=== PATIENT | female | born 1990 | race Caucasian/White ===

== ENCOUNTER 2018-08-09 04:23 | Emergency (ER) | payer MEDICAID ==
[~2018-08-09] VITALS: Ht 165.1 cm; Wt 182.0 kg
[~2018-08-09 04:23] MED LIST: METH4TAB3 PO; METH500T PO; WALKERFR; WHEE1EAC12 MC
--- NOTE | 2018-08-09 04:46 | NUR ---
Pt self identifed as male, manolo by name of Siddharth; biologically female. Siddharth reports not getting along well with men and asked if Counseling Aide were available because he "doesn't want to be put in lobby after discharge to have to wait for a rid until Friday mori." Pt reports not knowing anyone in [place] and having been transported without money. Siddharth states, "I'm worried right now." Mood is labile, vascillating between moderate irritablility and mild tearfulness. Discussed pt's pain status with dr Pollack; new orders received.
[2018-08-09] MEDS ORDERED: HYDROmorphone 1 mg/ml syringe IV ONE ×2 (04:55→06:35)
[2018-08-09] MEDS ORDERED: LORazepam 2 mg/ml vial IV ONE (07:05)
[2018-08-09] MEDS ORDERED: morphine 4 MG/ML inj SYRINge IV ONE (08:30)
--- NOTE | 2018-08-09 10:18 | NUR ---
SPOKE WITH CASE MANAGEMENT WORKER SHELDON REGARDING PT INALBE TO GET BACK HOME TO [place] AND PT REPORTS SHE HAS NO MONEY OR ANYONE WHOM COULD DRIVE HER. NO ALTERNATIVE MEASURES AVAILABLE AT PRESENT TIME.
--- NOTE | 2018-08-09 10:28 | NUR ---
PATIENT AMBULATED AT THIS TIME PER MD ORDER WITH WALKER, TOLERATED WELL, DENIES NAUSEA, DENIES DIZZINESS. GRATEFUL TO HAVE BREAKFAST AT THIS TIME, ALL SAFETY MEASURES IN PLACE.
--- NOTE | 2018-08-09 10:35 | NUR ---
CHARGE NURSE ROSA MADE AWARE PATIENT IN NEED OF TRANSPORTATION BACK TO [place], BANKING ATTORNEY SHELDON SPEAKING WITH JOAO.
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
--- NOTE | 2018-08-09 12:03 | NUR ---
HAVE NOT HEARD BACK FROM [facility], WILL CALL [facility] FOR POSSIBLE PT TRANSFER BACK HOME. MARC SANFORD NOTIFIED.
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
[2018-08-09 13:41] VITALS: BP 132/103
== END 2018-08-09 13:44 | disposition home or self-care (01) ==
LOC: ER 04:24
DX: G40.909 Epilepsy, unspecified, not intractable, without status epilepticus (principal); G89.29 Other chronic pain; M54.6 Pain in thoracic spine; M54.2 Cervicalgia; Z56.0 Unemployment, unspecified; Z88.6 Allergy status to analgesic agent; Z88.2 Allergy status to sulfonamides; Z88.8 Allergy status to other drugs, medicaments and biological substances
CPT/HCPCS: 70450; 72125; 72128; 72131; 96374; 96375; 96376; 99284; J1170; J2060; J2270

== ENCOUNTER 2018-09-01 10:23 | Inpatient (IN) | payer MEDICAID ==
[~2018-09-01] VITALS: Ht 162.6 cm; Wt 178.2 kg
[2018-09-01 12:20] VITALS: BP 120/66
[2018-09-01] MEDS ORDERED: QUET300T2 PO (14:10)
[2018-09-01] MEDS ORDERED: depakote PO (14:10)
[2018-09-01] MEDS ORDERED: LISI10TA4 PO (14:10)
[2018-09-01] MEDS ORDERED: NICOTINE POLACRILEX 4 MG LOZENGE BC PRN (14:20)
[2018-09-01] MEDS ORDERED: tuberculin, purif. prot. deriv. 5 units/0.1ml ID ONE (14:20)
[2018-09-01] MEDS ORDERED: DIVA-74 PO (14:30)
[2018-09-01] MEDS ORDERED: HYDR25TA4 PO (14:30)
[2018-09-01] MEDS ORDERED: TOP100T PO (14:30)
[2018-09-01] MEDS ORDERED: PRAZ2CAP2 PO (14:30)
[2018-09-01] MEDS ORDERED: PROM25TA14 PO (14:30)
[2018-09-01] MEDS ORDERED: DIAZ10TA PO (14:30)
[2018-09-01] MEDS ORDERED: OXYC5CAP19 PO (14:30)
[2018-09-01] MEDS ORDERED: GABA600T13 PO (14:30)
[2018-09-01] MEDS ORDERED: LANTUS SQ (14:38)
[2018-09-01] MEDS ORDERED: diazepam 5mg tablet PO PRN (14:50)
[2018-09-01] MEDS: oxyCODONE IR 5mg (immed. release) tablet PO PRN ×2 (14:57→20:51)
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
[2018-09-01] MEDS: gabapentin 300mg capsule PO SCH (17:26)
--- NOTE | 2018-09-01 17:40 | NUR ---
Skin check done by this RN and Vidya NOYOLA, skin is intact, no skin issues, pt showered. Pt is unhappy that his HS Seroquel was decreased, also requesting that someone be present when PA meets with him as he has trouble with "male authority figures like that."
[2018-09-01 20:00] VITALS: BP 102/54
[2018-09-01] MEDS: divalproex sodium 250mg tablet PO SCH (20:39)
[2018-09-01] MEDS: topiramate 100mg tablet PO SCH (20:39)
[2018-09-01] MEDS: insulin glargine (Lantus) pen - multi-dose SQ SCH (21:00)
[2018-09-01] MEDS ORDERED: prazosin 1mg capsule PO SCH (21:00)
[2018-09-01] MEDS ORDERED: quetiapine 100mg tablet PO SCH ×2 (21:00)
[2018-09-01] MEDS ORDERED: insulin glargine (Lantus) pen - multi-dose SQ SCH (21:00)
[2018-09-01] MEDS: diazepam 5mg tablet PO PRN (21:54)
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
[2018-09-02] MEDS: oxyCODONE IR 5mg (immed. release) tablet PO PRN ×3 (06:54→18:59)
[2018-09-02] MEDS: topiramate 100mg tablet PO SCH ×2 (07:40→20:45)
[2018-09-02 07:41] VITALS: BP 114/78
[2018-09-02] MEDS: lisinopril 10 MG tablet PO SCH (07:41)
[2018-09-02] MEDS: divalproex sodium 250mg tablet PO SCH (07:42)
[2018-09-02] MEDS: gabapentin 300mg capsule PO SCH ×4 (07:42→20:59)
[2018-09-02] MEDS: HYDROchlorothiazide 25mg tablet PO SCH (07:42)
[2018-09-02] MEDS ORDERED: budesonide 0.5mg/2ml UD nebule IH SCH (08:00)
[2018-09-02] MEDS ORDERED: albuterol 2.5 MG/3 ML nebule NEB SCH (09:00)
[2018-09-02] MEDS ORDERED: SUMAtriptan 25 MG tablet PO ONE (11:05)
[2018-09-02] MEDS ORDERED: docusate sod 100mg capsule PO ONE (12:10)
[2018-09-02] MEDS: diazepam 5mg tablet PO PRN (14:36)
[2018-09-02] MEDS: albuterol 2.5 MG/3 ML nebule NEB PRN ×2 (14:53→19:40)
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
[2018-09-02] MEDS: BUDESONIDE 0.25 MG/2 ML AMPUL.NEB IH SCH (19:40)
[2018-09-02 20:00] VITALS: BP 127/67
[2018-09-02] MEDS: prazosin 1mg capsule PO SCH (20:44)
[2018-09-02] MEDS: buPROPion 75mg tablet PO SCH (20:45)
[2018-09-02] MEDS: quetiapine 100mg tablet PO SCH (20:45)
[2018-09-02] MEDS: oxcarbazepine 150mg tablet PO SCH (20:45)
[2018-09-02] MEDS: insulin glargine (Lantus) pen - multi-dose SQ SCH (20:56)
[2018-09-02 21:21] LABS: BASOPHILS # (AUTO) 0.1 X10'3 (0-0.2); BASOPHILS % (AUTO) 0.7 % (0-1); EOSINOPHILS # (AUTO) 0.3 X10'3 (0-0.9); HEMATOCRIT 42.7 % (35.0-45.0); HEMOGLOBIN 14.4 g/dl (12.0-16.0); MEAN CORPUSCULAR HEMOGLOBIN 32.5 PG (27.0-31.0); MEAN CORPUSCULAR HGB CONC 33.7 g/dL (33.0-36.5); MEAN CORPUSCULAR VOLUME 96.7 FL (78-98); MEAN PLATELET VOLUME 7.6 FL (7.4-10.4); MONOCYTES # (AUTO) 0.6 X10'3 (0-0.9); MONOCYTES % (AUTO) 7.3 % (2-12); NEUTROPHILS # (AUTO) 4.1 X10'3 (1.8-7.7); PLATELET COUNT 319 X10'3 (140-440); RED BLOOD COUNT 4.42 X10'6 (4.20-5.60); RED CELL DISTRIBUTION WIDTH 13.5 % (11.5-14.5)
[2018-09-02 21:29] LABS: ALANINE AMINOTRANSFERASE 35 U/L (12-78); ALBUMIN 2.8 G/DL (3.4-5.0); ALBUMIN/GLOBULIN RATIO 0.8 (1.1-1.5); ALKALINE PHOSPHATASE 63 IU/L (46-116); ANION GAP 9 (8-16); ASPARTATE AMINO TRANSFERASE 9 U/L (10-37); BILIRUBIN,TOTAL 0.3 MG/DL (0.1-1.0); BLOOD UREA NITROGEN 9 MG/DL (7-18); CALCIUM 8.9 MG/DL (8.5-10.1); CHLORIDE 102 MMOL/L (99-107); CREATININE 0.75 MG/DL (0.40-0.90); GLUCOSE 175 MG/DL (70-104); POTASSIUM 3.9 MMOL/L (3.5-5.1); SODIUM 137 MMOL/L (135-145); TOTAL CARBON DIOXIDE 26.3 MMOL/L (24-32); TOTAL PROTEIN 6.3 G/DL (6.4-8.2); eGFR > 90 ML/MIN
[2018-09-02 21:42] LABS: HEMOGLOBIN A1C 6.6 % (4.5-6.2)
--- NOTE | 2018-09-03 00:18 | NUR ---
Nursing Progress Note: Legal hold: 5150 Client on voluntary/involuntary status for danger to self Report received from nurse with use of KEVIN; Renny LOPEZ Why are they here: The patient was seen in [place] ER by mental health staff after she went there for a mental health evaluation 2nd having suicidal thoughts with a plan to over dose on rx medications. Assessment What has happened this shift: The patient was up on the unit periodically and made some telephone calls. She was cooperative but needy and negative during the evening assessment. She stated that she felt emotional and irritable and "I'm going to try to keep to myself" She was clearly irritable during the evening and at times very negative. She denied significant problems with her energy level or her concentration or focus. She also stated that she felt like she was grieving and "pretty sad" She endorses suicidal thoughts and added, "I want to be with my partner who . I'm not going to commit suicide right now...I know you guys are here to help me" She stated that she felt relieved that she would not be discharging soon and "I don't have to worry about being thrown out" S/I, H/I; Reports suicidal thoughts but no intent A/VH: Denies Sleep:[] ADL's: Independent Group attendance: No PM group Were meds taken: Compliant with medications Any med S/E denied Mental Status Exam Appearance: Obese. Adequately groomed and appropriately dressed for the unit Eye contact: Intermittent Behavior: compliant with unit rules/routine Speech: Moderate rate and volume. Spontaneous Mood: Irritable, anxious depressed Affect: WNL Thought process: Logical. Thought Content: Negative, helpless, hopeless, situational problems, suicidal thinking Cognition: alert, oriented Insight:poor Judgment: poor Interventions PRN's used: pain medications Therapeutic interventions: One to one with the patient to assess severity of depressive symptoms and self harm risk. Restraints/seclusion/emergency medication:[] Justification of Continued Inpatient Treatment: The patient continues to endorse suicidal thinking.
[2018-09-03] MEDS: oxyCODONE IR 5mg (immed. release) tablet PO PRN ×3 (04:19→17:00)
[2018-09-03] MEDS: albuterol 2.5 MG/3 ML nebule NEB PRN ×3 (04:34→20:39)
[2018-09-03] MEDS ORDERED: loperamide 2mg capsule PO PRN (04:55)
[2018-09-03] MEDS ORDERED: acetaminophen 325mg tablet PO PRN ×2 (04:55→04:56)
[2018-09-03] MEDS ORDERED: mag hydrox/Alum hydrox/simeth 30ml oral suspension PO PRN (04:56)
[2018-09-03] MEDS ORDERED: quetiapine 100mg tablet PO SCH (07:00)
[2018-09-03] MEDS: QUEtiapine 25mg tablet PO SCH ×4 (07:00→17:00)
[2018-09-03] MEDS: buPROPion 75mg tablet PO SCH ×2 (07:27→19:52)
[2018-09-03] MEDS: gabapentin 300mg capsule PO SCH ×3 (07:28→20:21)
[2018-09-03] MEDS: docusate sod 100mg capsule PO SCH (07:28)
[2018-09-03] MEDS: oxcarbazepine 150mg tablet PO SCH ×2 (07:28→19:52)
[2018-09-03] MEDS: topiramate 100mg tablet PO SCH ×2 (07:29→19:52)
[2018-09-03 07:46] VITALS: BP 90/61
[2018-09-03] MEDS: HYDROchlorothiazide 25mg tablet PO SCH (08:00)
[2018-09-03] MEDS ORDERED: buproprion 150mg XL (24-hour) tablet PO SCH (08:00)
[2018-09-03] MEDS: lisinopril 10 MG tablet PO SCH (08:00)
[2018-09-03 08:05] LABS: CHOLESTEROL 176 MG/DL (0-200); HDL CHOLESTEROL 25 MG/DL (35-60); LDL CHOLESTEROL 105 MG/DL (50-100)
[2018-09-03] MEDS: BUDESONIDE 0.25 MG/2 ML AMPUL.NEB IH SCH ×2 (09:05→20:39)
[2018-09-03 09:40] LABS: TRIGLYCERIDES 355 MG/DL (20-135)
[2018-09-03] MEDS: diazepam 5mg tablet PO PRN (12:02)
[2018-09-03] MEDS ORDERED: polyvinyl alcohol ophthalmic drops 15ml bottle EACHEYE PRN (13:35)
--- NOTE | 2018-09-03 13:38 | NUR ---
DM Consult: Pt A1C <7 and not appropriate for ed at this time. Addendum: 09/03/18 at [address] Amended: Links added.
[2018-09-03] MEDS: polyvinyl alcohol ophthalmic drops 15ml bottle EACHEYE SCH ×2 (14:48→19:51)
[2018-09-03] MEDS: cetirizine 10mg tablet PO SCH (14:48)
--- NOTE | 2018-09-03 17:15 | NUR ---
Nursing Progress Note: Legal hold: 5150 Client on voluntary/involuntary status for danger to self Report received from nurse with use of KEVIN; Echo LOPEZ Why are they here: The patient was seen in [place] ER by mental health staff after she went there for a mental health evaluation 2nd having suicidal thoughts with a plan to over dose on rx medications. Pt. reports being transgender and requests to be called lenny and male pronouns be used. Assessment What has happened this shift: Pt.'s mood very irritable and labile today. Pt. reports her mother's cancer has metastasized, pt. reports she is depressed and wants to be alone. Pt. states, "I'm sorry if I lash out today, I've got a lot I'm dealing with". Pt. only attends group for a short amount of time and then goes back to her room. Pt. requests her pain medication every 6 hours due to severe back pain from spinal stenosis. Pt. had one episode of yelling after she was told she could not have the phone during group, pt. then slammed her door. Pt. started on eye drops and zyrtec for red, painful right eye. Pt.'s blood glucose was 127 in AM, 176 noon, and 145 at dinner. Pt. requested wheel chair and then requeted the walker instead. Pt. refused morning, afternoon, and evening dose of seroquil. Pt. is incontinent at times. Pt. swearing at times and saying beligerant things and then smiles and states, "I'm just FGwith you". Pt. requested no PRN breathing treatments. S/I, H/I; Reports suicidal thoughts but no intent A/VH: Denies Sleep: Pt. napped x1 today. ADL's: Independent Group attendance: No afternoon group. Were meds taken: Compliant with medications Any med S/E denied Mental Status Exam Appearance: Obese. Adequately groomed and appropriately dressed for the unit Eye contact: Intermittent Behavior: compliant with unit rules/routine Speech: Moderate rate and volume. Spontaneous Mood: Irritable, anxious depressed Affect: WNL Thought process: Logical. Thought Content: Pt. social and upbeat at times but labile and quickly becoming negative, helpless, hopeless, and has suicidal thinking Cognition: intact. Insight:poor Judgment: poor Interventions PRN's used: Oxycodone and valium. Therapeutic interventions: One to one with the patient to assess severity of depressive symptoms and self harm risk. Restraints/seclusion/emergency medication: N/A Justification of Continued Inpatient Treatment: The patient continues to endorse suicidal thinking.
[2018-09-03 19:00] VITALS: BP 108/67
[2018-09-03] MEDS: quetiapine 100mg tablet PO SCH (20:18)
[2018-09-03] MEDS: insulin glargine (Lantus) pen - multi-dose SQ SCH (20:20)
[2018-09-03] MEDS: prazosin 1mg capsule PO SCH ×2 (20:21→20:25)
[2018-09-04] MEDS: polyvinyl alcohol ophthalmic drops 15ml bottle EACHEYE SCH ×4 (02:00→19:46)
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
[2018-09-04] MEDS: oxyCODONE IR 5mg (immed. release) tablet PO PRN ×3 (04:45→16:48)
[2018-09-04] MEDS: QUEtiapine 25mg tablet PO SCH ×3 (07:00→17:00)
[2018-09-04 07:55] VITALS: BP 114/65
[2018-09-04] MEDS: docusate sod 100mg capsule PO SCH (07:58)
[2018-09-04] MEDS: gabapentin 300mg capsule PO SCH ×3 (07:58→21:08)
[2018-09-04] MEDS: buPROPion 75mg tablet PO SCH ×2 (07:58→19:39)
[2018-09-04] MEDS: oxcarbazepine 150mg tablet PO SCH ×2 (07:58→19:39)
[2018-09-04] MEDS: topiramate 100mg tablet PO SCH ×2 (07:59→19:39)
[2018-09-04] MEDS: cetirizine 10mg tablet PO SCH (07:59)
[2018-09-04] MEDS: lisinopril 5mg tablet PO SCH (07:59)
[2018-09-04] MEDS: HYDROchlorothiazide 25mg tablet PO SCH (07:59)
[2018-09-04] MEDS: BUDESONIDE 0.25 MG/2 ML AMPUL.NEB IH SCH ×2 (08:10→21:00)
[2018-09-04] MEDS: magnesium hydroxide 30ml (MOM) UD suspension PO PRN (09:37)
[2018-09-04] MEDS: proMETHazine 25mg tablet PO PRN (10:50)
[2018-09-04] MEDS: diazepam 5mg tablet PO PRN ×2 (13:01→19:39)
--- NOTE | 2018-09-04 17:22 | NUR ---
Nursing Progress Note: Legal hold: 5250 Client on voluntary/involuntary status for danger to self Report received from Carolee Jorge RN with use of SBAR Why are they here: The patient was seen in [place] ER by mental health staff after she went there for a mental health evaluation secondary to having suicidal thoughts with a plan to over dose on prescription medications. Pt. reports being transgender and requests to be called Siddharth and male pronouns be used. Assessment What has happened this shift: Pt. up at change of shift. Pt. reporting that today is going to be a difficult day because it's the anniversary of a friend's . Pt. reports that she fell this morning on her knees while in the bathroom, pt. assessed, no visible injury observed. Pt. went to group but left early stating that she was triggered by the discussion and made her upset. Pt. went back to room and slept. pt. went to day room for lunch but was upset and yelling because her tray was wrong. Pt. given PRN oxycodone for pain, Phenergan for nausea, and valium for anxiety. Pt.'s BG today were 0700 167, Noon 151 and 1700 164. Pt. is easily agitated by the other patients and leaves the day room to seek solitude in her room. S/I, H/I; Pt. reports passive SI, states, "I Just don't want to be on this earth". A/VH: None reported or observed Sleep: Pt. napped x2 on day shift. ADL's: Independent Group attendance: pt. attended part of morning group. Did not attend afternoon group. Were meds taken: all but seroquel. Any med S/E: None reported or observed Mental Status Exam Appearance: Obese. Adequately groomed and appropriately dressed for the unit Eye contact: Intermittent. Behavior: labile, joking at times, demanding and yelling at other times. Speech: Moderate rate and volume. Spontaneous Mood: Irritable, anxious, depressed, irritable, demanding. Affect: Congruent Thought process: Logical. Thought Content: Pt. social and upbeat at times but labile and quickly becoming negative, helpless, hopeless. Cognition: Alert and oriented Insight: Poor Judgment: Poor Interventions PRN's used: Oxycodone, Valium, Phenergan. Therapeutic interventions: One to one with the patient to assess severity of depressive symptoms and self harm risk. Maintained a safe and therapeutic environment. Administered medications as ordered. Restraints/seclusion/emergency medication: N/A Justification of Continued Inpatient Treatment: Patient is emotionally fragile and continues to endorse suicidal thinking. Continued therapeutic support and medication management needed to provide stabilization.
[2018-09-04 19:00] VITALS: BP 131/83
[2018-09-04] MEDS: prazosin 1mg capsule PO SCH (21:07)
[2018-09-04] MEDS: insulin glargine (Lantus) pen - multi-dose SQ SCH (21:07)
[2018-09-04] MEDS: quetiapine 100mg tablet PO SCH (21:08)
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
[2018-09-05] MEDS: polyvinyl alcohol ophthalmic drops 15ml bottle EACHEYE SCH ×4 (02:00→20:00)
[2018-09-05] MEDS: oxyCODONE IR 5mg (immed. release) tablet PO PRN ×3 (06:07→19:04)
[2018-09-05] MEDS: QUEtiapine 25mg tablet PO SCH ×5 (07:00→21:05)
[2018-09-05 08:00] VITALS: BP 117/68
[2018-09-05] MEDS: BUDESONIDE 0.25 MG/2 ML AMPUL.NEB IH SCH ×2 (08:17→21:00)
[2018-09-05] MEDS: HYDROchlorothiazide 25mg tablet PO SCH (08:29)
[2018-09-05] MEDS: oxcarbazepine 150mg tablet PO SCH ×2 (08:29→20:08)
[2018-09-05] MEDS: cetirizine 10mg tablet PO SCH (08:29)
[2018-09-05] MEDS: topiramate 100mg tablet PO SCH ×2 (08:29→20:08)
[2018-09-05] MEDS: gabapentin 300mg capsule PO SCH ×3 (08:29→21:02)
[2018-09-05] MEDS: buPROPion 75mg tablet PO SCH ×2 (08:29→20:08)
[2018-09-05] MEDS: lisinopril 5mg tablet PO SCH (08:29)
[2018-09-05] MEDS: docusate sod 100mg capsule PO SCH (08:29)
[2018-09-05] MEDS: hydrOXYzine 25 MG tablet PO PRN (12:40)
--- NOTE | 2018-09-05 14:10 | NUR ---
Initial: Pt admit to [facility] with depression with SI. Pt on a CHO controlled diet with documented PO intake 100% meeting nutrient needs. LBM 09/04. No edema or wounds. No nutrition diagnosis at this time. Will continue to follow. Recommendations: 1) Continue with CHO controlled diet 2) Weekly wt Addendum: 09/05/18 at [address] Amended: Links added.
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
[2018-09-05 17:55] VITALS: BP 138/80
[2018-09-05 19:00] VITALS: BP 97/54
[2018-09-05] MEDS: prazosin 1mg capsule PO SCH (20:12)
[2018-09-05] MEDS: insulin glargine (Lantus) pen - multi-dose SQ SCH (21:01)
[2018-09-05] MEDS: quetiapine 100mg tablet PO SCH (21:24)
--- NOTE | 2018-09-06 00:43 | NUR ---
Nursing Progress Note: Legal hold: 5250 Client on voluntary/involuntary status for danger to self Report received from Arlin LOPEZ with use of SBAR Why are they here: The patient was seen in [place] ER by mental health staff after she went there for a mental health evaluation secondary to having suicidal thoughts with a plan to over dose on prescription medications. Pt. reports being transgender and requests to be called Siddharth and male pronouns be used. Assessment What has happened this shift: Received patient sleeping in her room. Pt was quite groggy it took this engineering technical writer several times shaking patient to wake her up. Pt stated she had a bad day because some of the staff still refer to him as Marilou and not Siddharth. "Marilou is my name." She also reported that another patient continues to make sexual innuendos to him like "how big is your penis going to be," "hey sexy can I be your snuggle bunny." Pt feels like she needs to isolate to her room to avoid this other patient. This write observed pt out of room later having a snack and walked the ware. Pt denies SI, states she is depressed not suicidal. Rates depression 9/10 and anxiety 9/10. Pt was set up on BiPAP @ 30%. Minipress was held due to SBP being below parameters. Blood glucose was 165. S/I, H/I; Pt denies, none observed A/VH: None reported or observed Sleep: See sleep assessment notation ADL's: Independent Group attendance: caustic cresylate shift superintendent, no group Were meds taken: Except for 0200 eye drops and 2100 breathing treatment Any med S/E: None reported or observed Mental Status Exam Appearance: Clean and appropriate Eye contact: Direct Behavior: Cooperative, depressed Speech: Clear, moderate rate and rhythm Mood: Depressed, labile Affect: Labile Thought process: Logical. Thought Content: Pt feels she gets treated differently because she is transgender Cognition: Alert and oriented Insight: Poor Judgment: Poor Interventions PRN's used: Oxycodone Therapeutic interventions: 1:1 therapeutic assessment, active listening, medication education, administration, and monitoring for effects, maintained Q15 min safety checks, therapeutic milieu and group therapy. Restraints/seclusion/emergency medication: N/A Justification of Continued Inpatient Treatment: Patient is emotionally fragile and continues to endorse suicidal thinking. Continued therapeutic support and medication management needed to provide stabilization.
[2018-09-06] MEDS: polyvinyl alcohol ophthalmic drops 15ml bottle EACHEYE SCH ×4 (02:00→19:17)
[2018-09-06] MEDS: oxyCODONE IR 5mg (immed. release) tablet PO PRN ×4 (06:03→19:14)
[2018-09-06] MEDS: docusate sod 100mg capsule PO SCH (07:22)
[2018-09-06] MEDS: hydrOXYzine 25 MG tablet PO PRN (07:22)
[2018-09-06] MEDS: gabapentin 300mg capsule PO SCH ×3 (07:23→20:33)
[2018-09-06] MEDS: oxcarbazepine 150mg tablet PO SCH ×2 (07:24→19:12)
[2018-09-06] MEDS: diazepam 5mg tablet PO PRN ×2 (07:24→20:34)
[2018-09-06] MEDS: buPROPion 75mg tablet PO SCH ×2 (07:24→19:12)
[2018-09-06] MEDS: lisinopril 5mg tablet PO SCH (07:25)
[2018-09-06] MEDS: cetirizine 10mg tablet PO SCH (07:25)
[2018-09-06] MEDS: topiramate 100mg tablet PO SCH ×2 (07:25→19:12)
[2018-09-06] MEDS: SUMAtriptan 25 MG tablet PO PRN (07:26)
[2018-09-06] MEDS: HYDROchlorothiazide 25mg tablet PO SCH (07:26)
[2018-09-06 08:00] VITALS: BP 114/84
[2018-09-06] MEDS: BUDESONIDE 0.25 MG/2 ML AMPUL.NEB IH SCH ×2 (09:00→21:29)
--- NOTE | 2018-09-06 10:02 | NUR ---
Pt had anxiety due to another ptws comments, pt had effective coping skills and is now reading a book Addendum: 09/06/18 at 1006 by Nichole Hammonds RN Amended: Links added.
[2018-09-06] MEDS: proMETHazine 25mg tablet PO PRN ×2 (12:35→19:12)
[2018-09-06] MEDS: QUEtiapine 25mg tablet PO SCH ×2 (12:35→17:00)
--- NOTE | 2018-09-06 15:48 | NUR ---
Nursing Progress Note: Legal hold: 5250 Client on voluntary/involuntary status for danger to self Report received from nurse with use of KEVIN SHEPHERD Why are they here: The patient was seen in [place] ER by mental health staff after she went there for a mental health evaluation 2nd having suicidal thoughts with a plan to over dose on rx medications. Assessment What has happened this shift: The patient was awake in her bed at change of shift. During 1:1 evaluation and engaging with pt she expressed that she was upset from the day before. Myself and Dione RN were able to redirect pt and explain today is a new day and we are here to help her. Pt was easily redirectable during that moment and was satisfied with the plan of care for the day. Pt had a concern about another pt due to some inappropriate comments the other pt made to her. She expressed feelings of not feeling safe and was somewhat sad as well. Pt stated "I wanted to punch her when she did that but I didn't". Pt had demonstrated self control in that moment and I made sure and told her how impressed I was with her self control. We established a verbal agreement that we would make sure and keep her and the other pt away from each other and have her sit on the other side of the room. All staff aware as well, CN aware. Pt was grateful and stated "I feel safe" during our conversation of what actions were made to ensure pt felt safe. Pt was given her pain medications per md orders as well as antiemetics and pt was grateful as she was in pain. During that time pt expressed that she is feeling down, passively expressed SI. Pt also states that she would jump in traffic. Pt participated in group time and also pleasantly engaging with other pts during a birthday celebration. Pt stated, "this is really cool that you guys are doing this for her." At one point in the day she was referred to as Marilou and instantly had a change in her facial expression of feeling sad. We immediately apologized and she was ok. S/I, H/I; Reports suicidal thoughts but no intent A/VH: Denies Sleep:Napped ADL's: Independent Group attendance: No PM group Were meds taken: Compliant with medications Any med S/E denied Mental Status Exam Appearance: Obese. Adequately groomed and appropriately dressed for the unit Eye contact: Intermittent Behavior: compliant with unit rules/routine Speech: Moderate rate and volume. Spontaneous Mood: Irritable, anxious depressed Affect: WNL Thought process: Logical. Thought Content: Negative, helpless, hopeless, situational problems, suicidal thinking Cognition: alert, oriented Insight:poor Judgment: poor Interventions PRN's used: pain medications, antiemetics Therapeutic interventions: One to one time with pt and gave her positive feedback on her self control she expressed today. Spoke with her also about her depressive state and provided pt with paper so she can journal her feelings which was very effective for her and pt also stated she wanted to read her book. Restraints/seclusion/emergency medication:none Justification of Continued Inpatient Treatment: The patient continues to endorse suicidal thinking.
[2018-09-06 19:57] VITALS: BP 137/92
[2018-09-06] MEDS: prazosin 1mg capsule PO SCH (20:33)
[2018-09-06] MEDS: quetiapine 100mg tablet PO SCH (20:33)
[2018-09-06] MEDS: insulin glargine (Lantus) pen - multi-dose SQ SCH (20:39)
[2018-09-06] MEDS: albuterol 2.5 MG/3 ML nebule NEB PRN (21:29)
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
[2018-09-07] MEDS: polyvinyl alcohol ophthalmic drops 15ml bottle EACHEYE SCH ×4 (02:00→20:52)
[2018-09-07] MEDS: proMETHazine 25mg tablet PO PRN (05:49)
[2018-09-07] MEDS: oxyCODONE IR 5mg (immed. release) tablet PO PRN ×3 (05:49→17:58)
[2018-09-07] MEDS: QUEtiapine 25mg tablet PO SCH ×3 (07:00→16:35)
[2018-09-07] MEDS: diazepam 5mg tablet PO PRN ×2 (07:22→20:42)
[2018-09-07] MEDS: topiramate 100mg tablet PO SCH ×2 (07:44→20:41)
[2018-09-07] MEDS: buPROPion 75mg tablet PO SCH (07:45)
[2018-09-07] MEDS: oxcarbazepine 150mg tablet PO SCH ×2 (07:45→20:40)
[2018-09-07] MEDS: lisinopril 5mg tablet PO SCH (07:45)
[2018-09-07] MEDS: gabapentin 300mg capsule PO SCH ×3 (07:45→20:41)
[2018-09-07] MEDS: cetirizine 10mg tablet PO SCH (07:45)
[2018-09-07] MEDS: HYDROchlorothiazide 25mg tablet PO SCH (07:45)
[2018-09-07] MEDS: docusate sod 100mg capsule PO SCH ×2 (07:46→20:41)
[2018-09-07 08:00] VITALS: BP 125/77
[2018-09-07] MEDS: magnesium hydroxide 30ml (MOM) UD suspension PO PRN (12:06)
[2018-09-07] MEDS ORDERED: dextrose ORAL solution 15 GM/59 ML bottle PO PRN ×2 (13:50)
[2018-09-07] MEDS: hydrOXYzine 25 MG tablet PO PRN (15:04)
[2018-09-07] MEDS ORDERED: methyl salicylate/menthol cream 85gm TP PRN (15:35)
[2018-09-07] MEDS ORDERED: sennosides 8.6mg tablet PO ONE (15:55)
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
[2018-09-07] MEDS: sennosides 8.6mg tablet PO SCH (20:40)
[2018-09-07] MEDS: prazosin 1mg capsule PO SCH (20:41)
[2018-09-07] MEDS: quetiapine 100mg tablet PO SCH (20:42)
[2018-09-07 20:43] VITALS: BP 132/90
[2018-09-07] MEDS: insulin glargine (Lantus) pen - multi-dose SQ SCH (20:51)
[2018-09-07] MEDS: BUDESONIDE 0.25 MG/2 ML AMPUL.NEB IH SCH ×2 (21:00→21:12)
--- NOTE | 2018-09-07 21:21 | NUR ---
Nursing Progress Note: Legal hold: 5250 Client on involuntary status for danger to self Report received from Arlin LOPEZ with use of SBAR Why are they here: The patient was seen in [place] ER by mental health staff after he went there for a mental health evaluation 2nd having suicidal thoughts with a plan to over dose on rx medications. Assessment What has happened this shift: Pt was in the hallway at change of shift yelling "fuck this!" and angry, I opened the door talk and she walked away from me. Pt calmed herself in her room for several minutes and returned to the nursing station w/new clothes and requested a shower. Shower was made ready for patient. Pt explains "I was really suicidal today, but my mood is lifted after getting new clothes." Pt c/o her toenail, explained we can keep a bandage over it as we don't have anyone available to cut the toenail tonight. Pt c/o back pain at 5/10, she has been given prn at the end of day shift. Pt c/o feeling panicked but would like to wait until after her shower for valium. Pt was given prn valium. Pt requested new socks and was provided w/them. Pt reports attending groups today and discussed grief, she reports having a "bad flashback" regarding her "best friend who committed suicide by heroin overdose." Pt is requesting reading glasses, a new mask from respiratory, Prn frederick reed for her feet, and would like her seroquel to be given just before respiratory arrives. Pt c/o constipation and was given colace and senokot. Pt explained that she was upset that she was upset at the beginning of shift because of things other patients were saying. Explained to patient that some of the patients here dont have much control over everything they say and assured pt we would attempt to intervene if we hear inappropriate things being said. S/I, H/I: Passive s/i, is able to contract for safety while she's here. A/VH: Denies Sleep: reports sleeping well w/cpap ADL's: Independent Group attendance: no evening groups Were meds taken: pt is med compliant Any med S/E: None reported or noted Mental Status Exam Appearance: adequately groomed and dressed Eye contact: good Behavior: angry agitated at start of shift later explained "it makes me so mad when other patients say things they shouldnt be saying" pts mood improved after receiving new clothes and she became pleasant, patient, and cooperative. Speech: Normal rate and rhythm Mood: depressed states "I just want to be " Affect: Labile Thought process: Linear Thought Content:talking about new clothes, feet, meds, cpap. Cognition: A&Ox4 Insight: Poor Judgment: Poor Interventions PRN's used: Oxy-IR, Valium, Atarax, MOM Therapeutic interventions: 1:1 therapeutic assessment, active listening, medication education, administration, and monitoring for effects, maintained Q15 min safety checks, therapeutic milieu and group therapy. Restraints/seclusion/emergency medication: No Justification of Continued Inpatient Treatment: Pt endorses passive SI. Pt needs continued therapeutic support and medication management to provide stabilization and prevent decompensation.
--- NOTE | 2018-09-08 00:04 | NUR ---
glucose monitoring was changed from HS to BID, HS intervention was completed.
[2018-09-08] MEDS: polyvinyl alcohol ophthalmic drops 15ml bottle EACHEYE SCH ×4 (02:00→20:00)
[2018-09-08] MEDS: oxyCODONE IR 5mg (immed. release) tablet PO PRN ×3 (07:00→19:39)
[2018-09-08] MEDS: QUEtiapine 25mg tablet PO SCH ×3 (07:00→17:00)
[2018-09-08] MEDS: metFORMIN 500mg tablet PO SCH (07:40)
[2018-09-08] MEDS: sennosides 8.6mg tablet PO SCH ×2 (07:40→19:39)
[2018-09-08] MEDS: duloxetine 30mg CAPSULE.DR PO SCH (07:40)
[2018-09-08] MEDS: oxcarbazepine 150mg tablet PO SCH ×2 (07:41→19:39)
[2018-09-08] MEDS: gabapentin 300mg capsule PO SCH ×3 (07:41→20:53)
[2018-09-08] MEDS: docusate sod 100mg capsule PO SCH ×2 (07:42→19:39)
[2018-09-08] MEDS: topiramate 100mg tablet PO SCH ×2 (07:42→19:39)
[2018-09-08] MEDS: cetirizine 10mg tablet PO SCH (07:42)
[2018-09-08] MEDS: diazepam 5mg tablet PO PRN ×2 (07:43→15:44)
[2018-09-08] MEDS: buPROPion 75mg tablet PO SCH (07:43)
[2018-09-08] MEDS: HYDROchlorothiazide 25mg tablet PO SCH (07:47)
[2018-09-08] MEDS: lisinopril 5mg tablet PO SCH (07:47)
[2018-09-08 08:22] VITALS: BP 100/54
--- NOTE | 2018-09-08 08:34 | NUR ---
1:1 DISCHARGE PLANNING RAJESH made TC to [facility] at [phone], and spoke w/ Clinician of the Day, Eduardo. SW provided update on pt legal status and requested post hospital discharge appointments. Pt does not have an assigned Clinician at this time. SW informed pt sees "Person of the Day" for follow up appointments. Bethany is the provider who prescribes medications. RAJESH will follow up with JENNIFER Shah to learn disposition after today's assessment and provide update to [facility]. ALEJANDRINA Farrell
[2018-09-08] MEDS: albuterol 2.5 MG/3 ML nebule NEB PRN (10:40)
[2018-09-08] MEDS: BUDESONIDE 0.25 MG/2 ML AMPUL.NEB IH SCH ×2 (10:41→21:30)
[2018-09-08] MEDS: proMETHazine 25mg tablet PO PRN ×2 (13:27→19:39)
--- NOTE | 2018-09-08 17:42 | NUR ---
Nursing Progress Note: Legal hold: 5250 Client on involuntary status for danger to self Report received from Arlin LOPEZ with use of SBAR Why are they here: The patient was seen in [place] ER by mental health staff after he went there for a mental health evaluation 2nd having suicidal thoughts with a plan to over dose on rx medications. Assessment What has happened this shift: Pt. awake at beginning of shift. Pt. ate breakfast and took medications. BG 146 Pt. refused her blood pressure medication, pt. states, "It will make me feel sick". Pt. focused on getting her pain medications, stating, "remind me when I'm due for my next one". RN informed pt. that he can only give medication when pt. requests it as it is an as needed medication. Pt. verbalized understanding. Pt. reports her back pain is 9/10. Pt. attended part of morning group but reported that it brought up a lot of difficult emotions so she did not want to stay. Pt. is very anxious about going home tomorrow. Pt. became nauseaus during lunch and states, "I think it's because I nervous about what Artur is going to say to me". Pt. given PRN Phenergen for nausea. RN talked with pt. and pt. was able to verbalize the positives if she is discharged. Pt. states, "I am going to go see my 5 y.o. daughter in [place], and I will visit my terminally ill mother at the same time and my girlfriends burial site. Pt. given Valium @ 0730 and 15:30 for anxiety with good effect. S/I, H/I: Passive s/i, is able to contract for safety while she's here. A/VH: Denies Sleep: reports sleeping well w/cpap ADL's: Independent Group attendance: pt. attended part of morning group. Were meds taken: pt is med compliant Any med S/E: None reported or noted Mental Status Exam Appearance: adequately groomed and dressed Eye contact: good Behavior: Pt. is isolative and deprsesed at times and out-going and gregarious at other times. Speech: Normal rate and rhythm Mood: Pt.'s mood fluctuates during the day from isolative and depressed to loud and intrussive. Affect: Labile Thought process: Linear Thought Content: Pt. is focused on her PRN pain medications and discharge. Cognition: A&Ox4 Insight: Poor Judgment: Poor Interventions PRN's used: Oxy-IR, Valium, Phenergen Therapeutic interventions: 1:1 therapeutic assessment, active listening, medication education, administration, and monitoring for effects, maintained Q15 min safety checks, therapeutic milieu and group therapy. Restraints/seclusion/emergency medication: No Justification of Continued Inpatient Treatment: Pt endorses passive SI. Pt needs continued therapeutic support and medication management to provide stabilization and prevent decompensation.
[2018-09-08 20:00] VITALS: BP 133/93
[2018-09-08] MEDS: insulin glargine (Lantus) pen - multi-dose SQ SCH (20:51)
[2018-09-08] MEDS: quetiapine 100mg tablet PO SCH (20:52)
[2018-09-08] MEDS: SUMAtriptan 25 MG tablet PO PRN (20:52)
[2018-09-08] MEDS: prazosin 1mg capsule PO SCH (20:53)
--- NOTE | 2018-09-08 22:13 | NUR ---
Nursing Progress Note: Legal hold: 5250 Client on involuntary status for danger to self Report received from Vernon LOPEZ with use of SBAR Why are they here: The patient was seen in [facility] by mental health staff after he went there for a mental health evaluation 2nd having suicidal thoughts with a plan to over dose on rx medications. Assessment What has happened this shift: Pt was in ware at change of shift. Pt is requesting pain medications. She states she is concerned about discharge tomorrow and explains she thinks she will have trouble getting in the house and her roommate will leave and go to the casino and wont give her a mcdonough. Pt states "I live in a weird situation, my roommates dont know Im trans, they just think I'm reed. They are a couple, but she likes me and he likes me but I dont like him and shes going to be gone for two weeks and leave me there with him and I'm probably going to just have to give him money to leave me alone and go to the casino." Pt states she isnt currently thinking of suicide, but mostly how she will get in the house. Pt is able to contract for safety. Pt c/o pain, a headache. She refuses eye drops, frederick reed for her feet, and requests that RT not bother her tonight or come to her room, because she doesnt want to use bipap tonight. Encouraged use of bipap while she is sleeping and pt states "I have a headache, I dont want to be bothered by any noises." Pt reports sleeping well the night before w/bipap. Pts appetite is good. S/I, H/I: Passive s/i, is able to contract for safety while she's here. A/VH: Denies Sleep: pt refused bipap tonight ADL's: Independent Group attendance: No evening groups Were meds taken: Pt did not use eye drops, Any med S/E: None reported or noted Mental Status Exam Appearance: adequately groomed and dressed Eye contact: good Behavior: Pt spent time talking on the phone to roomate, and watching basketball in rec room. Speech: Normal rate and rhythm Mood: Labile depressed, anxious, Affect: Labile Thought process: Linear Thought Content: Pt. is focused on her PRN pain medications and discharge. Cognition: A&Ox4 Insight: Poor Judgment: Poor Interventions PRN's used: Oxy-IR, Valium, Phenergen,Imitrex Therapeutic interventions: 1:1 therapeutic assessment, active listening, medication education, administration, and monitoring for effects, maintained Q15 min safety checks, therapeutic milieu Restraints/seclusion/emergency medication: No Justification of Continued Inpatient Treatment: Pt endorses passive SI. Pt needs continued therapeutic support and medication management to provide stabilization and prevent decompensation.
[2018-09-09] MEDS: polyvinyl alcohol ophthalmic drops 15ml bottle EACHEYE SCH ×2 (02:00→08:40)
[2018-09-09] MEDS: oxyCODONE IR 5mg (immed. release) tablet PO PRN (06:57)
[2018-09-09] MEDS: QUEtiapine 25mg tablet PO SCH ×2 (07:00→12:19)
[2018-09-09] MEDS: gabapentin 300mg capsule PO SCH ×2 (07:37→12:19)
[2018-09-09] MEDS: duloxetine 30mg CAPSULE.DR PO SCH (07:38)
[2018-09-09] MEDS: sennosides 8.6mg tablet PO SCH (07:38)
[2018-09-09] MEDS: metFORMIN 500mg tablet PO SCH (07:39)
[2018-09-09] MEDS: docusate sod 100mg capsule PO SCH (07:39)
[2018-09-09] MEDS: topiramate 100mg tablet PO SCH (07:39)
[2018-09-09] MEDS: cetirizine 10mg tablet PO SCH (07:40)
[2018-09-09] MEDS: HYDROchlorothiazide 25mg tablet PO SCH (07:40)
[2018-09-09] MEDS: lisinopril 5mg tablet PO SCH (07:40)
[2018-09-09] MEDS: oxcarbazepine 150mg tablet PO SCH (07:40)
[2018-09-09] MEDS: buPROPion 75mg tablet PO SCH (07:41)
[2018-09-09 08:00] VITALS: BP 140/88
[2018-09-09] MEDS: BUDESONIDE 0.25 MG/2 ML AMPUL.NEB IH SCH (08:15)
[2018-09-09] MEDS: diazepam 5mg tablet PO PRN (11:18)
[2018-09-09] MEDS ORDERED: CETI-102 PO (12:20)
[2018-09-09] MEDS ORDERED: SENN-173 PO (12:20)
[2018-09-09] MEDS ORDERED: BUPR-83 PO (12:20)
[2018-09-09] MEDS ORDERED: METF-950 PO (12:20)
[2018-09-09] MEDS ORDERED: COL100C PO (12:20)
[2018-09-09] MEDS ORDERED: LANTUS SQ (12:20)
[2018-09-09] MEDS ORDERED: DULO30CA51 PO (12:20)
[2018-09-09] MEDS ORDERED: METH57CR TP (12:20)
[2018-09-09] MEDS ORDERED: QUET25TA34 PO (12:20)
[2018-09-09] MEDS ORDERED: OXCA150T14 PO (12:20)
[2018-09-09] MEDS ORDERED: PRAZ2CAP2 PO (12:20)
[2018-09-09] MEDS ORDERED: QUET100T33 PO (12:20)
[2018-09-09] MEDS ORDERED: POLY15DR55 EACHEYE ×2 (12:20)
[2018-09-09] MEDS ORDERED: oxyCODONE IR 5mg (immed. release) tablet PO ONE (12:35)
--- NOTE | 2018-09-09 12:53 | NUR ---
Pt. discharged to home with belongings and valuables. Pt. denies SI/HI A/V H. Pt. is calm and cooperative and with [facility] drivers. Pt.'s medications faxed to [facility].
== END 2018-09-09 12:50 | disposition home or self-care (01) | DRG 751 ==
LOC: ADULT MH 11:35
PROVIDERS: ADMIT Psychiatry & Neurology Psychiatry; ATTEND Psychiatry & Neurology Psychiatry
PROC: 5A09357 Assistance with Respiratory Ventilation, Less than 24 Consecutive Hours, Continuous Positive Airway Pressure (ICD-10-PCS; principal; 2018-09-01)
PROC: 5A09357 Assistance with Respiratory Ventilation, Less than 24 Consecutive Hours, Continuous Positive Airway Pressure (ICD-10-PCS; 2018-09-02)
PROC: 5A09357 Assistance with Respiratory Ventilation, Less than 24 Consecutive Hours, Continuous Positive Airway Pressure (ICD-10-PCS; 2018-09-05)
DX: F33.2 Major depressive disorder, recurrent severe without psychotic features (principal); E11.40 Type 2 diabetes mellitus with diabetic neuropathy, unspecified; E66.01 Morbid (severe) obesity due to excess calories; R45.851 Suicidal ideations; M41.9 Scoliosis, unspecified; Z68.44 Body mass index [BMI] 60.0-69.9, adult; F60.3 Borderline personality disorder; E11.9 Type 2 diabetes mellitus without complications; F17.200 Nicotine dependence, unspecified, uncomplicated; F43.10 Post-traumatic stress disorder, unspecified; G47.33 Obstructive sleep apnea (adult) (pediatric); G89.4 Chronic pain syndrome; I10 Essential (primary) hypertension; M54.9 Dorsalgia, unspecified; F41.1 Generalized anxiety disorder; J44.9 Chronic obstructive pulmonary disease, unspecified; Z79.4 Long term (current) use of insulin; Z88.2 Allergy status to sulfonamides; Z88.6 Allergy status to analgesic agent; Z88.8 Allergy status to other drugs, medicaments and biological substances; Z80.3 Family history of malignant neoplasm of breast; Z83.3 Family history of diabetes mellitus; Z98.891 History of uterine scar from previous surgery; Z56.0 Unemployment, unspecified
CPT/HCPCS: 36415; 80053; 80061; 82948; 83036; 84439; 84443; 85025; 87070; 94640; 94660; 94760; 99285; J1815; J7626; Q0169; Q0177